=== PATIENT | female | born 1950 | race Caucasian/White ===

== ENCOUNTER → 2017-11-17 | Outpatient (CLI) | payer OTHER ==
[~2017-11-17] MED LIST: ARTIFICIAL TEAR15 M1 OPHTHALMIC; BENADRYL25 MG PO; CELEXA20 MG PO; CLARITIN10 MG PO; DIAZEPAM 5 MG5 MG PO; FOLIC ACID1 MG PO; MEDROLDOSEPACK PO; METHOTREXATE 22.5 MG PO; NAPROSYN500 MG PO; ONDANSETRON HCL4 M2 PO; REMICADE 1100 MG/VIA; SIMVASTATIN20 MG PO; VALIUM5 MG PO; VENTOLIN HFA 1818 GM; VESICARE 5 MG TA5 MG PO; ZOCOR40 MG PO; ZOFRAN 4 MG ORAL4 M1 DIS; ZPAK; ZPAK PO
== END ==
LOC: RAD 16:59
DX: J10.1 Influenza due to other identified influenza virus with other respiratory manifestations (principal)

== ENCOUNTER → 2020-06-30 | Outpatient (CLI) | payer OTHER | LOC: SJCVCIMAG 04-28 10:07 | PROVIDERS: ATTEND Internal Medicine Cardiovascular Disease | DX: I65.23 Occlusion and stenosis of bilateral carotid arteries (principal); E78.00 Pure hypercholesterolemia, unspecified; I25.10 Atherosclerotic heart disease of native coronary artery without angina pectoris; E11.9 Type 2 diabetes mellitus without complications; Z79.899 Other long term (current) drug therapy ==

== ENCOUNTER → 2020-06-30 | Outpatient (CLI) | payer OTHER | LOC: CAT 16:10 | PROVIDERS: ATTEND Internal Medicine Cardiovascular Disease | DX: Z13.6 Encounter for screening for cardiovascular disorders (principal); I25.10 Atherosclerotic heart disease of native coronary artery without angina pectoris; E78.00 Pure hypercholesterolemia, unspecified ==